=== PATIENT | male | born 1960 | race Caucasian/White ===

== ENCOUNTER 2020-05-08 14:14 | Observation (INO) ==
[2020-05-08] MEDS ORDERED: NITROGLYCERIN SL 0.4 MG/TAB TAB SL PRN (14:24)
[2020-05-08] MEDS ORDERED: MIDAZOLAM HCL 1 MG/ML 2ML VIAL ONE (14:24)
[2020-05-08] MEDS ORDERED: ASPIRIN CHEW 324 MG PO STA (14:24)
[2020-05-08] MEDS ORDERED: ASPIRIN 81 MG CHEW ONE (14:25)
[2020-05-08] MEDS ORDERED: fentaNYL citrate 100 MCG/2 ML VIAL ONE (14:25)
[2020-05-08] MEDS ORDERED: NITROGLYCERIN/D5W 100MCG/ML 20ML SYR ONE (14:25)
[2020-05-08] MEDS ORDERED: HEPARIN (PORCINE) 1000 UNIT/ML 10 ML (CATH LAB USE ONLY) ONE (14:25)
[2020-05-08] MEDS ORDERED: NITROGLYCERIN SL 0.4 MG/TAB TAB ONE (14:25)
[2020-05-08] MEDS ORDERED: niCARdipine HCL INJ 2.5 MG/ML 10 ML AMP ONE (14:25)
[2020-05-08] MEDS ORDERED: HEPARIN 25000 UNIT/500 ML D5W IV ONE (14:31)
[2020-05-08] MEDS ORDERED: TICAGRELOR 90 MG TAB PO ONE ×2 (14:31)
[2020-05-08] MEDS ORDERED: ONDANSETRON INJ 2 MG/ML 2 ML VIAL ONE (14:34)
[2020-05-08] MEDS ORDERED: ATROPINE SULFATE 0.1 MG/ML 10ML SYR IV ONE (14:34)
[2020-05-08 14:37] LABS: Basophils # (auto) 0.03 K/uL (0-0.2); Basophils % (auto) 0.2 %; Eosinophils # (auto) 0.09 K/uL (0-0.5); Eosinophils % (auto) 0.7 %; Hematocrit (blood only) 43.7 % (42-52); Hemoglobin 14.9 g/dL (14.0-18.0); Immature Granulocytes # (auto) 0.03 K/uL (0.00-0.02); Immature Granulocytes % (auto) 0.2 %; Lymphocytes # (auto) 3.63 K/uL (1.2-3.4); Lymphocytes % (auto) 29.3 %; Mean Corpuscular Hemoglobin 30.5 pg (25-34); Mean Corpuscular Hgb Conc 34.1 g/dL (32-36); Mean Corpuscular Volume 89.4 fL (80-100); Mean Platelet Volume 9.3 fL (7.4-10.4); Monocytes # (auto) 0.88 K/uL (0.11-0.59); Monocytes % (auto) 7.1 %; Neutrophils # (auto) 7.71 K/uL (1.4-6.5); Neutrophils % (auto) 62.5 %; Platelet Count 352 K/uL (130-400); RDW Coefficient of Variation 12.2 % (11.5-14.5); RDW Standard Deviation 39.7 fL (36.4-46.3); Red Blood Count 4.89 M/uL (4.7-6.1); White Blood Count 12.37 K/uL (4.8-10.8)
--- NOTE | 2020-05-08 14:39 | Pre Anesthesia Assessment ---
Date of Service May 08, 2020 Pre Sedation Assessment Vital Signs Temp Pulse Resp BP Pulse Ox 05/08/20 14:30 99 H 17 137/81 100 05/08/20 14:28 100 H 28 H 149/106 H 05/08/20 14:25 97 H 22 95 05/08/20 14:19 97.7 F 90 28 H 150/91 H Cardiovascular RRR, no murmur, no edema Respiratory normal respiratory effort, lungs clear to auscultation Pre-Sedation Airway Assessment Smoking Status: Never smoker Hx Sleep Apnea: No Hx Difficult Intubation: No Short, Thick Neck: No Thyromental Distance: > or= 3.5 Finger Breadths Oral Cavity: + Dental Abnormalities Mallampati Class: III ASA: ASA4 Procedure Planning Contraindications for Sedation: none Current Medications Reviewed: Yes Notes The planned sedation has been discussed with the patient. Informed Consent was obtained. I have identified the patient, determined the appropriateness of sedation and have assessed the patient immediately prior to the procedure. All medicine(s) and interventions are by my order.
[2020-05-08 14:40] LABS: iSTAT Creatinine 1.2 mg/dl (0.6-1.3); iSTAT Hemoglobin 15.3 g/dl (14.0-18.0); iSTAT Ionized Calcium 1.08 mmol/l (1.12-1.32); iSTAT Potassium 3.9 mmol/L (3.3-5.0)
--- NOTE | 2020-05-08 14:42 | Cardiology Consultation ---
Date of Consultation May 08, 2020 Assessment & Plan (1) ST elevation myocardial infarction (STEMI) of inferior wall: Presentation consistent with inferior STEMI and recommend proceeding with emergent cardiac catheterization and likely primary PCI. No apparent contraindications to procedure. Discussed risks, benefits, alternatives of procedure with patient and they are willing to proceed. Given ticagrelor 180 mg in the ED. Further recommendations pending findings of coronary angiography. History of Present Illness History of Present Illness 59-year-old man here with acute chest pain and ECG concerning for acute WA. Patient seen emergently in the ED after heart alert activated on arrival. No prior cardiac history. Cardiac risk factors include type 2 diabetes was previously on metformin but self discontinued. No other active medical issues. Non-smoker. 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 Describes left-sided, "clamp like" pain with associated shortness of breath. Denies similar symptoms in the past. Chest pain at time of arrival 5/10. Hemodynamically stable. EKG showed inferior ST elevations. Given sublingual nitroglycerin, ticagrelor in ED. Allergies Allergy/AdvReac Type Severity Reaction Status Date / Time [id number] Allergy Unknown Uncoded 03/25/04 17:12 Patient History Medical History Diabetes Social History Smoking Status: Never smoker Preferred Language: Surinamese Feels Safe at Home: Yes Review of Systems Review of Systems: Not obtained in the setting of emergent situation Physical Exam Physical Exam: General: Uncomfortable HEENT: Sclerae anicteric, poor dentition Lungs: Clear to auscultation bilaterally Cardiac: Tachycardic, regular, no murmurs Vascular: 2+ radial Abdomen: Soft, nontender Extremities: Well perfused, no peripheral edema Neuro: Nonfocal Psych: Alert and oriented Results & Data ([facility]) Vital Signs (Past 12 Hours) Vital Signs Temp Pulse Resp BP Pulse Ox 05/08/20 14:30 99 H 17 137/81 100 05/08/20 14:28 100 H 28 H 149/106 H 05/08/20 14:25 97 H 22 95 05/08/20 14:19 97.7 F 90 28 H 150/91 H PG Care Time/CCT Total # of Minutes Spent Total Time Spent with Patient: Total time spent is greater than 50% in coordination of care (as documented) at patient's floor/unit and/or counseling patient: Coding Level of Care Code 95786 Inpt Consult Level [address] elevation myocardial infarction (STEMI) of inferior wall I21.19
--- NOTE | 2020-05-08 14:43 | Emergency Department Note ---
History of Present Illness General Chief complaint: Chest Pain Stated complaint: Chest pain Time Seen by Provider: 05/08/20 14:18 Source: patient and family History of Present Illness Provider complaint: Chest pain Onset (ago): hour(s) 1 Location: chest and left Radiation: extremity (Left shoulder and upper arm) Severity: severe Pain Consistency: + constant Maximum Pain Intensity: 8 Quality: + other (Tightness like a clamp around his chest) Relieved By: + none Associated symptoms: + diaphoresis and + shortness of breath; no cough, no fever/chills and no nausea/vomiting This is a [id number]-male who presents with chest pain starting approximately 1 hour prior to arrival. The patient states the pain is left of center of his chest rating into his left upper arm and shoulder. He denies any radiation to his back. He describes it as a tightness and clamp-like pain. No alleviating factors. It is associated with diaphoresis and shortness of breath. The patient was carrying wood when this started. He denies any prior history of cardiac disease. He is not on any medications. He was diagnosed with diabetes last June and placed on Metformin but never followed up and stopped taking his medication. He does not smoke. He does have a family history of heart disease. He denies any fever, cough or cold symptoms, abdominal pain, vomiting, diarrhea or known exposure to COVID-19. He denies any leg swelling or pain. He currently rates his pain a 5 out of 10 in severity. 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 and A total of 10 systems reviewed and were otherwise negative Physical Exam Vital Signs Vital Signs - 24 hr 05/08/20 14:19 05/08/20 14:25 05/08/20 14:28 Temperature 36.5 C Temperature Source Oral Pulse Rate 90 97 H 100 H Pulse Rate from SpO2 Sensor Pulse Rhythm Regular Pulse Strength Normal Respiratory Rate 28 H 22 28 H Blood Pressure 150/91 H 149/106 H Blood Pressure Mean 110 120 Blood Pressure Position Lying Pulse Oximetry 95 Oxygen Delivery Method Room Air Sepsis Recent Fever Within 48 Hours No Sepsis New/Unexplained Change in Mental Status N/A Sepsis Action Taken by Nursing No Action Required 05/08/20 14:30 Temperature Temperature Source Pulse Rate 99 H Pulse Rate from SpO2 Sensor 100 H Pulse Rhythm Pulse Strength Respiratory Rate 17 Blood Pressure 137/81 Blood Pressure Mean 99 Blood Pressure Position Pulse Oximetry 100 Oxygen Delivery Method Sepsis Recent Fever Within 48 Hours Sepsis New/Unexplained Change in Mental Status Sepsis Action Taken by Nursing Constitutional: Vital signs reviewed. The patient is in obvious discomfort. Eyes: Pupils are equal round reactive to light. Conjunctiva are noninjected. ENT: Pharynx is clear without erythema or exudate. Mucous membranes are moist. Neck supple without meningeal signs. Respiratory: Clear to auscultation bilaterally. Breath sounds are equal bilaterally. Cardiovascular: Regular rate and rhythm. No rubs or gallops. GI: Soft, nondistended and nontender. Bowel sounds are present. Musculoskeletal: No peripheral edema. No lower extremity tenderness. Integumentary: No cyanosis. or jaundice. Neurological: The patient is awake and alert. No focal deficits. Psychiatric: Anxious. Course Administered Medications Atorvastatin Calcium (Atorvastatin 40 Mg Tab) 80 mg PO QAM [facility] Stop: 06/07/20 16:29 Last Admin: 05/08/20 16:30 Dose: 80 mg Documented by: [id number] Sodium Chloride (Nss 1000ml) 1,000 mls @ 100 mls/hr IV .Q10H [facility] Stop: 05/09/20 01:59 Last Admin: 05/08/20 16:27 Dose: 100 mls/hr Documented by: [id number] Discontinued Medications Aspirin (Aspirin 81 Mg Chew) Confirm Administered Dose 81 mg .ROUTE .STK-MED ONE Stop: 05/08/20 14:26 Last Admin: 05/08/20 14:36 Dose: 81 mg Documented by: [id number] Aspirin (Aspirin Chew 324 Mg) 324 mg PO NOW [facility] Stop: 05/08/20 14:25 Last Admin: 05/08/20 14:36 Dose: Not Given Documented by: [id number] Atropine Sulfate (Atropine Sulfate 0.1 Mg/Ml 10ml Syr) Confirm Administered Dose 1 mg IV .[facility] ONE Stop: 05/08/20 14:35 Last Admin: 05/08/20 15:27 Dose: 1 mg Documented by: [id number] Fentanyl Citrate (Fentanyl Citrate 100 Mcg/2 Ml Vial) Confirm Administered Dose 100 mcg .ROUTE .[facility] ONE Stop: 05/08/20 14:26 Last Increment: 05/08/20 15:26 Dose: 75 mcg Documented by: [id number] Heparin Sodium (Porcine) (Heparin (Porcine) 1000 Unit/Ml 10 Ml (Lactation Coordinator Use Only)) Confirm Administered Dose 10,000 units .ROUTE .[facility] ONE Stop: 05/08/20 14:26 Last Admin: 05/08/20 15:26 Dose: 8,000 units Documented by: [id number] Heparin Sodium/Dextrose (Heparin 60942 Unit/500 Ml D5w) Confirm Administered Dose 25,000 units IV .[facility] ONE Stop: 05/08/20 14:32 Last Admin: 05/08/20 14:38 Dose: Not Given Documented by: [id number] Heparin Sodium/Sodium Chloride (Heparin In Nss Infusion 1000 Unit/500 Ml (2 U/Ml) Bag) Confirm Administered Dose 3,000 units IV .[facility] ONE Stop: 05/08/20 14:26 Last Admin: 05/08/20 15:26 Dose: 3,000 units Documented by: [id number] Midazolam HCl (Midazolam Hcl 1 Mg/Ml 2ml Vial) Confirm Administered Dose 2 mg .ROUTE .[facility] ONE Stop: 05/08/20 14:25 Last Admin: 05/08/20 15:26 Dose: 2 mg Documented by: [id number] Nicardipine HCl (Nicardipine Hcl Inj 2.5 Mg/Ml 10 Ml Amp) Confirm Administered Dose 25 mg .ROUTE .[facility] ONE Stop: 05/08/20 14:26 Last Admin: 05/08/20 15:26 Dose: 25 mg Documented by: [id number] Nitroglycerin (Nitroglycerin Sl 0.4 Mg/Tab Tab) Confirm Administered Dose 0.4 mg .ROUTE .[facility]-MED ONE Stop: 05/08/20 14:26 Last Admin: 05/08/20 14:36 Dose: 0.4 mg Documented by: [id number] Nitroglycerin/Dextrose (Nitroglycerin/D5w 100mcg/Ml 20ml Syr) Confirm Administered Dose 2,000 mcg .ROUTE .STK-MED ONE Stop: 05/08/20 14:26 Last Admin: 05/08/20 15:26 Dose: 2,000 mcg Documented by: [id number] Ticagrelor (Ticagrelor 90 Mg Tab) Confirm Administered Dose 180 mg PO .STK-MED ONE Stop: 05/08/20 14:32 Last Admin: 05/08/20 14:37 Dose: Not Given Documented by: [id number] Ticagrelor (Ticagrelor 90 Mg Tab) 180 mg PO ONE ONE Stop: 05/08/20 14:32 Last Admin: 05/08/20 14:37 Dose: 180 mg Documented by: [id number] Medical Decision Making Differential Diagnosis STEMI, unstable angina, aortic dissection, PE, pneumothorax Medical Records Attestation: I reviewed the patient's medical records. I did perform a limited focused review of portions of the patient's old chart on the electronic medical record. The patient has had no recent pertinent visits to this hospital. Home Medications Current Medication List: was personally reviewed by me Laboratory Data Attestation: I reviewed the patient's lab results. Result diagrams: 05/08/20 14:25 05/08/20 14:25 Lab Results 05/08/20 05/08/20 05/08/20 Range/Units 14:25 14:25 14:25 WBC 12.37 H (4.8-10.8) K/uL RBC 4.89 (4.7-6.1) M/uL Hgb 14.9 (14.0-18.0) g/dL POC Hgb (14.0-18.0) g/dl Hct 43.7 (42-52) % POC Hct (42-52) % MCV 89.4 (80-100) fL MCH 30.5 (25-34) pg MCHC 34.1 (32-36) g/dL RDW Std Deviation 39.7 (36.4-46.3) fL RDW Coeff of Candida 12.2 (11.5-14.5) % Plt Count 352 (130-400) K/uL MPV 9.3 (7.4-10.4) fL Immature Gran % (Auto) 0.2 % Neut % (Auto) 62.5 % Lymph % (Auto) 29.3 % Ray % (Auto) 7.1 % Eos % (Auto) 0.7 % Baso % (Auto) 0.2 % Neut # (Auto) 7.71 H (1.4-6.5) K/uL Lymph # (Auto) 3.63 H (1.2-3.4) K/uL Ray # (Auto) 0.88 H (0.11-0.59) K/uL Eos # (Auto) 0.09 (0-0.5) K/uL Baso # (Auto) 0.03 (0-0.2) K/uL Immature Gran # (Auto) 0.03 H (0.00-0.02) K/uL PT 10.8 (9.0-12.0) Seconds INR 1.0 (0.9-1.1) APTT 24.2 (21.0-31.0) Seconds PTT Ratio 0.9 Activ Coag Time Kaolin (94-140) SECONDS POC Sodium (135-144) mmol/L Sodium 136 (136-145) mmol/L POC Potassium (3.3-5.0) mmol/L Potassium 3.9 (3.5-5.1) mmol/L POC Chloride (101-112) mmol/L Chloride 106 (98-107) mmol/L Carbon Dioxide 20 L (21-32) mmol/L POC Total CO2 (24-31) mmol/L Anion Gap 10.0 (3-11) POC Anion Gap (16-25) mmol/L POC BUN (7-18) mg/dl BUN 17 (7-18) mg/dl Creatinine 1.39 (0.6-1.4) mg/dl POC Creatinine (0.6-1.3) mg/dl Est Cr Clr Drug Dosing 65.8 ml/min Est GFR ( Amer) 64.7 Est GFR (Non-Af Amer) 55.9 BUN/Creatinine Ratio 12.1 (10-20) Glucose 198 H (70-99) mg/dl POC Glucose (other) (70-99) mg/dl Calcium 9.0 (8.5-10.1) mg/dl POC Ioniz Calcium Anastacia (1.12-1.32) mmol/l Magnesium 2.2 (1.8-2.4) mg/dl Total Bilirubin 0.5 (0.2-1) mg/dl AST 29 (15-37) U/L ALT 36 (12-78) U/L Alkaline Phosphatase 78 (45-117) U/L Total Creatine Kinase 390 H (39-308) U/L CK-MB (CK-2) 2.6 (0.5-3.6) ng/ml CK/CKMB % Calc 0.7 (0-3.0) Troponin I 0.069 H* (0-0.045) ng/ml Total Protein 7.7 (6.4-8.2) gm/dl Albumin 4.0 (3.4-5.0) gm/dl Globulin 3.7 (2.5-4.0) gm/dl Albumin/Globulin Ratio 1.1 (0.9-2) Lipase 235 (73-393) U/L TSH 1.760 (0.300-4.500) uIu/ml COVID-19 Eval Order SARS-CoV-2, RNA, NAAT (NEGATIVE) 05/08/20 05/08/20 05/08/20 Range/Units 14:27 14:29 14:29 WBC (4.8-10.8) K/uL RBC (4.7-6.1) M/uL Hgb (14.0-18.0) g/dL POC Hgb 15.3 (14.0-18.0) g/dl Hct (42-52) % POC Hct 45 (42-52) % MCV (80-100) fL MCH (25-34) pg MCHC (32-36) g/dL RDW Std Deviation (36.4-46.3) fL RDW Coeff of Candida (11.5-14.5) % Plt Count (130-400) K/uL MPV (7.4-10.4) fL Immature Gran % (Auto) % Neut % (Auto) % Lymph % (Auto) % Ray % (Auto) % Eos % (Auto) % Baso % (Auto) % Neut # (Auto) (1.4-6.5) K/uL Lymph # (Auto) (1.2-3.4) K/uL Ray # (Auto) (0.11-0.59) K/uL Eos # (Auto) (0-0.5) K/uL Baso # (Auto) (0-0.2) K/uL Immature Gran # (Auto) (0.00-0.02) K/uL PT (9.0-12.0) Seconds INR (0.9-1.1) APTT (21.0-31.0) Seconds PTT Ratio Activ Coag Time Kaolin (94-140) SECONDS POC Sodium 134 L (135-144) mmol/L Sodium (136-145) mmol/L POC Potassium 3.9 (3.3-5.0) mmol/L Potassium (3.5-5.1) mmol/L POC Chloride 104 (101-112) mmol/L Chloride (98-107) mmol/L Carbon Dioxide (21-32) mmol/L POC Total CO2 19 L (24-31) mmol/L Anion Gap (3-11) POC Anion Gap 17.0 (16-25) mmol/L POC BUN 18 (7-18) mg/dl BUN (7-18) mg/dl Creatinine (0.6-1.4) mg/dl POC Creatinine 1.2 (0.6-1.3) mg/dl Est Cr Clr Drug Dosing ml/min Est GFR ( Amer) Est GFR (Non-Af Amer) BUN/Creatinine Ratio (10-20) Glucose (70-99) mg/dl POC Glucose (other) 202 H (70-99) mg/dl Calcium (8.5-10.1) mg/dl POC Ioniz Calcium Anastacia 1.08 L (1.12-1.32) mmol/l Magnesium (1.8-2.4) mg/dl Total Bilirubin (0.2-1) mg/dl AST (15-37) U/L ALT (12-78) U/L Alkaline Phosphatase (45-117) U/L Total Creatine Kinase (39-308) U/L CK-MB (CK-2) (0.5-3.6) ng/ml CK/CKMB % Calc (0-3.0) Troponin I (0-0.045) ng/ml Total Protein (6.4-8.2) gm/dl Albumin (3.4-5.0) gm/dl Globulin (2.5-4.0) gm/dl Albumin/Globulin Ratio (0.9-2) Lipase (73-393) U/L TSH (0.300-4.500) uIu/ml COVID-19 Eval Order Covid19 [facility]Now [facility] SARS-CoV-2, RNA, NAAT NEGATIVE (NEGATIVE) 05/08/20 Range/Units 15:15 WBC (4.8-10.8) K/uL RBC (4.7-6.1) M/uL Hgb (14.0-18.0) g/dL POC Hgb (14.0-18.0) g/dl Hct (42-52) % POC Hct (42-52) % MCV (80-100) fL MCH (25-34) pg MCHC (32-36) g/dL RDW Std Deviation (36.4-46.3) fL RDW Coeff of Candida (11.5-14.5) % Plt Count (130-400) K/uL MPV (7.4-10.4) fL Immature Gran % (Auto) % Neut % (Auto) % Lymph % (Auto) % Ray % (Auto) % Eos % (Auto) % Baso % (Auto) % Neut # (Auto) (1.4-6.5) K/uL Lymph # (Auto) (1.2-3.4) K/uL Ray # (Auto) (0.11-0.59) K/uL Eos # (Auto) (0-0.5) K/uL Baso # (Auto) (0-0.2) K/uL Immature Gran # (Auto) (0.00-0.02) K/uL PT (9.0-12.0) Seconds INR (0.9-1.1) APTT (21.0-31.0) Seconds PTT Ratio Activ Coag Time Kaolin 191 H (94-140) SECONDS POC Sodium (135-144) mmol/L Sodium (136-145) mmol/L POC Potassium (3.3-5.0) mmol/L Potassium (3.5-5.1) mmol/L POC Chloride (101-112) mmol/L Chloride (98-107) mmol/L Carbon Dioxide (21-32) mmol/L POC Total CO2 (24-31) mmol/L Anion Gap (3-11) POC Anion Gap (16-25) mmol/L POC BUN (7-18) mg/dl BUN (7-18) mg/dl Creatinine (0.6-1.4) mg/dl POC Creatinine (0.6-1.3) mg/dl Est Cr Clr Drug Dosing ml/min Est GFR ( Amer) Est GFR (Non-Af Amer) BUN/Creatinine Ratio (10-20) Glucose (70-99) mg/dl POC Glucose (other) (70-99) mg/dl Calcium (8.5-10.1) mg/dl POC Ioniz Calcium Anastacia (1.12-1.32) mmol/l Magnesium (1.8-2.4) mg/dl Total Bilirubin (0.2-1) mg/dl AST (15-37) U/L ALT (12-78) U/L Alkaline Phosphatase (45-117) U/L Total Creatine Kinase (39-308) U/L CK-MB (CK-2) (0.5-3.6) ng/ml CK/CKMB % Calc (0-3.0) Troponin I (0-0.045) ng/ml Total Protein (6.4-8.2) gm/dl Albumin (3.4-5.0) gm/dl Globulin (2.5-4.0) gm/dl Albumin/Globulin Ratio (0.9-2) Lipase (73-393) U/L TSH (0.300-4.500) uIu/ml COVID-19 Eval Order SARS-CoV-2, RNA, NAAT (NEGATIVE) ECG Data Attestation: I personally reviewed and interpreted this ECG as follows: Indication: + chest pain Rate (beats per minute): 96 Rhythm: + normal sinus ECG ST segments: + ST depression (1, L, V2 to V5) and + ST elevation (Inferior) ECG Findings: no PVCs MDM Narrative I did evaluate the patient as noted above. The patient is presenting with chest pain starting while carrying wood. He did have diaphoresis and shortness of breath. He is does state that his pain is easing up and he rates it occurring 5 out of 10 in severity. IV access was established. I did place an order for continuous cardiac monitoring. The monitor showed normal sinus rhythm at a rate of 98 bpm. I did order and personally review the patient's 12-lead EKG as d escribed above. He does have what appears to be an inferior STEMI with reciprocal changes. I did immediately call a heart alert. He was given aspirin 324 mg p.o. He was also given 2 sublingual nitroglycerin. His pain went down to a 3. Dr. Ashton of cardiology did evaluate the patient in the emergency department. He did discuss catheterization with the patient. The patient was given 180 mg of Brilinta. He was taken to the cardiac catheterization lab for further care. I did order and review the patient's blood work as noted in the electronic medical record. His white blood cell count is 12. This is a nonspecific finding. He has hyperglycemic with a glucose of 198. Troponin is elevated at 0.069. Covid testing is negative. Impression & Plan ST elevation myocardial infarction (STEMI), Acute hyperglycemia, Elevated tr oponin Discharge Plan Visit Data Chief Complaint: Chest Pain Stated Complaint: Chest pain ED Provider: Nathaniel Vasquez Discharge Problem: ST elevation myocardial infarction (STEMI), Acute hyperglycemia, Elevated troponin Patient Disposition: Admitted As Inpatient Discharge Instructions Interventions: ED Discharge Assessment Last Done: 05/08/20 14:52 Discharge Problem: ST elevation myocardial infarction (STEMI) Qualifiers: Involved coronary artery: unspecified coronary artery Qualified Code(s): I21.3 - ST elevation (STEMI) myocardial infarction of unspecified site
[2020-05-08 14:48] LABS: Partial Thromboplastin Ratio 0.9; Partial Thromboplastin Time 24.2 Seconds (21.0-31.0); Prothrombin Time 10.8 Seconds (9.0-12.0)
[2020-05-08 14:56] LABS: BUN Creatinine Ratio 12.1 (10-20); Creatinine Clr Calc Pharmacy 65.8 ml/min; Est GFR (African American) 64.7; Est GFR (Non-African American) 55.9; Magnesium 2.2 mg/dl (1.8-2.4); Potassium 3.9 mmol/L (3.5-5.1)
[2020-05-08] MEDS ORDERED: NOREPINEPHRINE BITARTRATE 1 MG/ML 4 ML VIAL (CATH LAB USE ONLY) ONE (15:02)
[2020-05-08 15:15] LABS: Albumin Globulin Ratio 1.1 (0.9-2); Bilirubin,Total 0.5 mg/dl (0.2-1); Creatine Kinase MB 2.6 ng/ml (0.5-3.6); Globulin 3.7 gm/dl (2.5-4.0); Thyroid Stimulating Hormone 1.76 uIu/ml (0.300-4.500); Total Protein 7.7 gm/dl (6.4-8.2); Troponin I 0.069 ng/ml (0-0.045)
[2020-05-08] MEDS ORDERED: MoRPHine SULFATE 2 MG/ML CARP IV PRN (15:18)
[2020-05-08] MEDS ORDERED: ONDANSETRON INJ 2 MG/ML 2 ML VIAL IV PRN (15:18)
[2020-05-08] MEDS ORDERED: ATROPINE SULFATE 0.1 MG/ML 10ML SYR IV PRN (15:18)
[2020-05-08] MEDS ORDERED: ACETAMINOPHEN 325 MG TAB PO PRN (15:18)
[2020-05-08] MEDS ORDERED: ALUMINUM/MAGNESIUM SUSP 30 ML UDC PO PRN (15:18)
--- NOTE | 2020-05-08 15:26 | Post Anesthesia Assessment ---
Date of Service May 08, 2020 Post Sedation Assessment Vital Signs Temp Pulse Resp BP Pulse Ox 05/08/20 14:30 99 H 17 137/81 100 05/08/20 14:28 100 H 28 H 149/106 H 05/08/20 14:25 97 H 22 95 05/08/20 14:19 97.7 F 90 28 H 150/91 H Recovery Score Activity: Moves 4 extremities Respiration: Deep Breath/Cough Circulation: +/-20% PreAnes Value Consciousness: Fully Awake Oxygen Saturation: O2 needed for >90% Discharge Sedation Level of Care: Fast Track Phase II Post Sedation Plan On clinical assessment, the patient appears to have tolerated the sedation without complications. Patient is recovering as anticipated. Patient will continue to be monitored by nursing and may be discharged when sedation discharge criteria are met per below protocol. Upon Completions of procedure up to 15 minutes continue every 5 minute vital signs and the P.A.R. score; then discharge to a Phase I or Fast Track to Phase II per the following guidelines: * Discharge Patient to appropriate Phase II area if PAR is 8 or greater or return to pre- procedure baseline. The post - procedure orders will be as directed. * If PAR score is less than 8 or not return to pre-procedure baseline then patient will follow Phase I monitoring till PAR is reached for Phase II. The Phase I may be done in procedure room or may call to secure a Phase I area. * If naloxone or flumazenil are used for reversal, hold in Phase I for continued monitoring from when last reversal dose was given for a minimum of 60 minutes or longer pending the nurse and/or physician discretion of patient condition before discharge to Phase II. Please call the Sedation Physician to re-evaluate and complete post-note for discharge to Phase II area. Do NOT discharge from procedure sedation or Phase 1 until post- sedation evaluation note is complete by procedure /sedation MD Sedation Discharge Instructions to be given to the patient at discharge to home.
--- NOTE | 2020-05-08 15:28 | Cardiac Catheterization ---
[facility] Data: Community Pharmacist Cardiac Status Clinical evaluation leading to the procedure CAD Presenation: STEMI Anginal Classification: CCS IV Heart Failure: No Cardiogenic Shock within 24 Hours: No Cardiac Arrest within 24 Hours: No Imaging Studies Past 6 Months: No Stress Studies Past 6 Months: No Diagnostic Physicians Name: Quincy Ashton MD Status: Emergency Closure Device Percutaneous Entry Location: Radial Closure Device: Radial Band Recommendations: PCI without planned CABG PCI Indication: Immediate PCI for STEMI First Noted: First EKG Lesion Segment Name: Mid RCA Culprit Artery: Yes Stenosis Prior to Rx (%): 100 Chronic Total Occlusion: No IVUS: No FFR: No Pre-Procedure ALEXEY Flow: 0 Previously Treated Lesion: No Lesion Complexity: Non-High/Non-C Thrombus Present: Yes Bifurcation Lesion: No Guidewire Across Lesion: Stenosis Post-Procedure (%): 0 Post-Procedure ALEXEY Flow: 3 Devices(s) Deployed: Yes Yes Intraprocedure Events Significant Disection: No Perforation: No Cardiac Cath Procedure Full Procedure Date May 08, 2020 Pre-Procedure Diagnosis Pre-Procedure Diagnosis: STEMI AUC Score AUC Score: 9 Post-Procedure Diagnosis Post-Procedure Diagnosis: Severe CAD, Successful PCI and Normal Intracardiac Pressures Procedure(s) Performed Procedure(s) Performed: Coronary Angiography, Left Heart Cath, LV Angiography and Drug Eluting Stent Warp Scouring Vat Tender Quincy Ashton MD Employment Training Specialist(s) Zheng Estimated Blood Loss Estimated Blood Loss: 10 Medication(s) Medication(s): Fentanyl, Heparin, Lidocaine 1%, Nicardipine, Nitroglycerin and Versed Medication(s): Ticagrelor Summary of Findings Indication: STEMI/Heart Alert Access: 6 Fr right radial artery Catheters: [place] left 3.5 guide, JR4 guide, [place] Findings: LM -normal caliber, angulated takeoff with 20% ostial stenosis LAD -medium caliber mid segment luminal irregularities, distal vessel without significant disease and wraps around apex. Provides faint [id number] collaterals to RCA territory. Small first diagonal with 50 to 60% proximal disease [place], no significant disease Circumflex -medium caliber, no significant disease RCA -dominant, large caliber, 100% acute mid occlusion LVEDP -10 -- PCI -- Antithrombotic therapy: Heparin, ticagrelor Procedure: RCA cannulated with JR4 guide BMW wire passed across lesion into distal vessel Mid RCA lesion predilated with 2.5 compliant balloon Dilated lesion stented with 4.0 x 22 mm Nikolai With reestablish flow had bradycardia, hypotension requiring IV fluid bolus and atropine. Post atropine periods of accelerated idioventricular rhythm and bigeminy. Stent post-dilated with 4.5 noncompliant balloon IC vasodilators administered for spasm Post procedure ALEXEY 3 flow, stent well expanded with minimal residual stenosis and no apparent cardiac complications. Arterial Closure: TR band Summary: 1. Inferior STEMI/acute 100% mid RCA occlusion 2. Mild to moderate nonculprit coronary artery disease -20% ostial left main 50 to 60% proximal small first diagonal 3. Normal intracardiac filling pressure 4. Successful PCI of mid RCA with single drug-eluting stent (4.0 x 22 mm Nikolai; postdilated with 4.5 NC). Recommendations: Admit to PCU for continued monitoring Loaded with ticagrelor 180 mg Continue dual-antiplatelet therapy for at least 1 year. Trend troponins until peak, Check Echo Uptitrate beta-reanna/RUBEN as BP allows High-dose statin Consult cardiac Rehab Hemodynamics Rest Ao:: 128/72/100 Final Ao: 89/58/71 LV: 89/10 Recommendations Recommendations: PCI without planned CABG Specimens Specimens: None Radiation Exposure (mGy) 1054 Contrast (mls) 90 Fluids (cc crystalloids) Fluids (cc crystalloids): 350 Drains Drains: None Anesthesia Moderate Procedural Complication(s) None Disposition PCU I attest to the content of the Intraoperative Record and any orders documented therein. Any exceptions are noted below. [facility] Card Cath Procedure Codes Cardiac Catheterization Procedure 1: Cardiovascular Cath Procedures: 34986 Coronaries and LHC (+/-LV) Moderate Sedation Procedure 1: Sedation/Anesthesia: 85318 Mod Sedation by the same physician;Init15 Min Child Age 5 & Up Procedure 2: Sedation/Anesthesia: 12880 Mod Sedation by the same physician; Ea [id number] Minutes Stenting Procedure 1: Cardiovascular Stent Procedures: 57089 Perc transluminal revascularization of acute sub/total occl, aMI PG Care Time/CCT Total # of Minutes Spent Total Time Spent with Patient: Total time spent is greater than 50% in coordination of care (as documented) at patient's floor/unit and/or counseling patient:
[2020-05-08] MEDS ORDERED: GLUCOSE 40% GEL 15 GM TUBE PO PRN (15:52)
[2020-05-08] MEDS ORDERED: CARBOHYDRATES FOR HYPOGLYCEMIA PO PRN (15:52)
[2020-05-08] MEDS ORDERED: GLUCOSE 10 TABS/TUBE PO PRN (15:52)
[2020-05-08] MEDS ORDERED: GLUCAGON FOR INJ 1 MG VIAL SQ PRN (15:52)
[2020-05-08] MEDS ORDERED: DEXTROSE 50% 50 ML SYRINGE IV PRN (15:52)
[2020-05-08] MEDS ORDERED: SODIUM CHLORIDE 0.9% 1000ML 1,000 ML IV SCH (16:00)
[2020-05-08] MEDS: ATORVASTATIN 40 MG TAB PO SCH (16:30)
--- NOTE | 2020-05-08 16:30 | XRay Report ---
XR chest 1V portable HISTORY: 59 years-old Male Chest pain acute atypical chest pain COMPARISON: Chest radiographs 03/31/2011 TECHNIQUE: Portable AP view of the chest FINDINGS: Cardiomediastinal and hilar silhouettes are within normal limits. No pneumothorax, pleural effusion, airspace consolidation or overt pulmonary edema. Bones of the chest appear grossly intact. Degenerati ve changes of the shoulders and spine. IMPRESSION: No acute process. ACT 112: Negative or not required by law. The above report was generated using voice recognition software. It may contain grammatical, syntax o r spelling errors. Electronically signed by: Tyson Trinidad M.D. 05/08/2020 4:29 PM
[2020-05-08] MEDS ORDERED: INFLUENZA VIRUS QUAD VACCINE 0.5 ML SYR IM ONE (16:42)
[2020-05-08] MEDS ORDERED: INFLUENZA ADMINISTRATION CHARGE ONE (16:42)
[2020-05-08] MEDS: INSULIN ASPART 100 UNITS/ML 3 ML PEN SC SCH ×2 (17:20→19:50)
[2020-05-08] MEDS: METOPROLOL TARTRATE 25 MG TAB PO SCH (18:04)
[2020-05-08 22:14] LABS: Appearance Urine Clear (Clear); Bilirubin Urine Negative (Negative); Blood Urine Negative (Negative); Color Urine Yellow; Glucose Urine UA Negative (Negative); Ketones Urine Trace (Negative); Leukocyte Esterase Urine Negative (Negative); Nitrite Urine Negative (Negative); Protein Urine Negative (Negative); Urobilinogen Urine Negative (Negative); pH Urine 5.5 (4.5-7.5)
[2020-05-08] MEDS: TICAGRELOR 90 MG TAB PO SCH (23:20)
[2020-05-09 03:59] LABS: Basophils # (auto) 0.02 K/uL (0-0.2); Basophils % (auto) 0.2 %; Eosinophils # (auto) 0.08 K/uL (0-0.5); Eosinophils % (auto) 0.7 %; Hematocrit (blood only) 40.6 % (42-52); Hemoglobin 13.8 g/dL (14.0-18.0); Immature Granulocytes # (auto) 0.01 K/uL (0.00-0.02); Immature Granulocytes % (auto) 0.1 %; Lymphocytes # (auto) 1.54 K/uL (1.2-3.4); Lymphocytes % (auto) 12.7 %; Mean Corpuscular Hemoglobin 30.9 pg (25-34); Mean Platelet Volume 9.5 fL (7.4-10.4); Monocytes # (auto) 0.96 K/uL (0.11-0.59); Monocytes % (auto) 7.9 %; Neutrophils # (auto) 9.53 K/uL (1.4-6.5); Neutrophils % (auto) 78.4 %; Platelet Count 310 K/uL (130-400); RDW Coefficient of Variation 12.7 % (11.5-14.5); RDW Standard Deviation 42.2 fL (36.4-46.3); Red Blood Count 4.46 M/uL (4.7-6.1); White Blood Count 12.14 K/uL (4.8-10.8)
[2020-05-09 04:18] LABS: BUN Creatinine Ratio 12.4 (10-20); Blood Urea Nitrogen 13 mg/dl (7-18); Calcium 8.2 mg/dl (8.5-10.1); Carbon Dioxide 21 mmol/L (21-32); Chloride 110 mmol/L (98-107); Creatinine Clr Calc Pharmacy 84.7 ml/min; Est GFR (African American) 87.8; Est GFR (Non-African American) 75.8; Glucose 138 mg/dl (70-99); Magnesium 2.3 mg/dl (1.8-2.4); Potassium 3.8 mmol/L (3.5-5.1); Sodium 137 mmol/L (136-145)
[2020-05-09 04:21] LABS: Chol HDL Ratio 5; Cholesterol 213 mg/dl (0-200); HDL Cholesterol 43 mg/dl; LDL Cholesterol Direct 148 mg/dl; Triglycerides 83 mg/dl (0-150); VLDL Cholesterol 17 mg/dl
[2020-05-09 05:51] LABS: Estimated Average Glucose 146 mg/dl; Hemoglobin A1C 6.7 % (4.5-5.6)
--- NOTE | 2020-05-09 07:40 | Electrocardiogram Report ---
Test Reason : Blood Pressure : / mmHG Vent. Rate : 096 BPM Atrial Rate : 096 BPM P-R Int : 164 ms QRS Dur : 104 ms QT Int : 372 ms P-R-T Axes : 079 085 100 degrees QTc Int : 469 ms Sinus rhythm with Premature atrial complexes ST elevation consider inferior injury or acute infarct ACUTE MA / STEMI Consider right ventricular involvement in acute inferior infarct Abnormal ECG When compared with ECG of 31-MAR-2011 12:49, Premature atrial complexes are now Present ST elevation now present in Inferior leads ST now depressed in Anterior leads T wave inversion now evident in Lateral leads Confirmed by Barrett Marin ([id number]) on 05/09/2020 7:40:23 AM Referred By: Confirmed By:Barrett Marin
[2020-05-09] MEDS: INSULIN ASPART 100 UNITS/ML 3 ML PEN SC SCH ×2 (08:27→11:16)
[2020-05-09] MEDS: TICAGRELOR 90 MG TAB PO SCH (08:28)
[2020-05-09] MEDS: ATORVASTATIN 40 MG TAB PO SCH (08:28)
[2020-05-09] MEDS: METOPROLOL TARTRATE 25 MG TAB PO SCH (08:28)
[2020-05-09] MEDS ORDERED: ASPIRIN 81 MG ECTAB PO SCH (09:00)
[2020-05-09] MEDS ORDERED: lisinopril 5 MG TAB PO SCH (09:00)
--- NOTE | 2020-05-09 12:18 | Electrocardiogram Report ---
Test Reason : Blood Pressure : / mmHG Vent. Rate : 069 BPM Atrial Rate : 069 BPM P-R Int : 150 ms QRS Dur : 094 ms QT Int : 448 ms P-R-T Axes : 025 -25 -27 degrees QTc Int : 480 ms Normal sinus rhythm Inferior infarct , age undetermined Abnormal ECG When compared with ECG of 08-MAY-2020 14:18, Evolutionary changes of an inferior NC Confirmed by Kj Larsen ([id number]) on 05/09/2020 12:17:58 PM Referred By: REFERRED SELF Confirmed By:Kj Larsen
[2020-05-09] MEDS ORDERED: ENOXAPARIN INJ 40 MG/0.4 ML SYR SQ SCH (15:30)
--- NOTE | 2020-05-09 17:40 | XCELERA ---
[id number] \\[id number]
--- NOTE | 2020-05-09 17:55 | Discharge Summary ---
Date of Service May 09, 2020 Admission HPI Per Admitting Provider 59-year-old man here with acute chest pain and ECG concerning for acute [place]. Patient seen emergently in the ED after heart alert activated on arrival. No prior cardiac history. Cardiac risk factors include type 2 diabetes was previously on metformin but self discontinued (states his PCP prescribed him a "whole box of pills" but never took them). No other active medical issues. Non-smoker. 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 Describes left-sided, "clamp like" pain with associated shortness of breath. Denies similar symptoms in the past. Chest pain at time of arrival 08/24. Hemodynamically stable. EKG showed inferior ST elevations. Given sublingual nitroglycerin, ticagrelor in ED. Social history: Works as a contractor. Denies heavy alcohol or tobacco use. and his had an [place] treated with PCI at [facility] 1 year ago Specialty Data Cardiology Cardiac catheterization/PCI 05/08/2020: 20% ostial left main, small D1 50 to 60% proximal. Dominant large RCA 100% acute mid occlusion. PCI to RCA with 4.0 x 22 mm [place]; postdilated with 4.5 NC Echo 05/09/2020: LVEF 60 to 65%, mild base to mid inferior, inferolateral hypokinesis. No valvular pathology Discharge Data Consultations 05/08/20 15:22 Consult Cardiac Rehabilitation Routine Procedures Performed Operation Date: 05/08/20 14:25 Actual Procedures p Cineradiography w/Routine Exam - Darwin Ashton MD s Cath, Left with Cors and Vent - Darwin Ashton MD s Aspiration/PCI w/MARIBEL for Stemi - Darwin Ashton MD Hospital Course (1) CAD (coronary artery disease): --Inferior STEMI post primary PCI 05/08/2020, MARIBEL to mid RCA Mild to moderate nonculprit disease, 20% ostial left main, 50 to 60% small D1 2. Preserved LV function, mild inferior inferolateral hypokinesis 04/2020 3. DyslipidemiaLDL 148 04/2020 4. Borderline type 2 [id number] 6.7 04/2020 Patient taken emergently for cardiac catheterization and found to have an acutely occluded mid RCA. Treated with a single drug-eluting stent without complication. Post procedure admitted to telemetry for further observation. Had no additional chest pain. Remained electrically stable. Troponin peaked at 57. Echocardiogram showed preserved LV function with mild inferior, inferolateral hypokinesis. Noted to have an LDL of 148, mildly elevated blood sugars with a A1c of 6.7. On hospital day 2 was feeling well with no recurrent chest pain. No access site complications. He was discharged home on DAPT with aspirin, ticagrelor. Restarted on statin and Metformin. Follow-up with cardiology in 1 to 2 weeks. Discuss cardiac rehab and referral to diabetic senior art director at that time. Discharge Instructions Home Medications aspirin 81 mg PO QAM #30 tab 05/09/20 [Rx] atorvastatin 80 mg PO QAM #30 tab 05/09/20 [Rx] lisinopril [Zestril] 5 mg PO QAM #30 tab 05/09/20 [Rx] metformin 500 mg PO DAILY #30 tab 05/09/20 [Rx] metoprolol succinate [Toprol XL] 25 mg PO DAILY #30 tab 05/09/20 [Rx] nitroglycerin [Nitrostat] 0.4 mg SUBLINGUAL Q5M PRN #20 tab 05/09/20 [Rx] ticagrelor [Brilinta] 90 mg PO BID #60 tab 05/09/20 [Rx] Coding Level of Care Code 71950 OBS Care - Discharge Diagnoses CAD (coronary artery disease) I25.10
== END 2020-05-09 13:53 | disposition home or self-care (01) ==
LOC: 1E 14:14 → ED 14:14 → 1E 14:52